=== PATIENT | female | born 1950 | race Caucasian/White ===

== ENCOUNTER → 2021-04-27 | Day surgery (SDC) | payer MEDICARE | LOC: CSHSDC/OP 07:56 | PROVIDERS: ATTEND Student in an Organized Health Care Education/Training Program | DX: U07.1 COVID-19 (principal); Z23 Encounter for immunization | CPT/HCPCS: J3490; M0243; Q0244 ==

== ENCOUNTER 2024-09-03 12:21 | Outpatient (CLI) | payer OTHER | END 2024-09-03 12:22 | disposition home or self-care (01) | LOC: CSHCT 12:21 | PROVIDERS: ATTEND Physician Assistant | DX: E78.2 Mixed hyperlipidemia (principal); R93.1 Abnormal findings on diagnostic imaging of heart and coronary circulation | CPT/HCPCS: 75571 ==